=== PATIENT | male | born 1990 | race Caucasian/White ===

== ENCOUNTER 2016-08-21 15:38 | Emergency (ER) | payer OTHER, BC ==
--- NOTE | 2016-08-21 18:02 | US ---
DUPLX SCAN VEIN EXT UNI LT COMPARISON: None. HISTORY: 25-year-old with left hip pain for 3 weeks, with slight swelling. Technique: The veins of the left lower extremity were interrogated with real-time grayscale ultrasound, color Doppler, and spectral Doppler. Vessel compressibility and flow augmentation were assessed. FINDINGS: Deep venous thrombosis: None. Common femoral vein: Normal. Proximal femoral vein: Normal. Saphenous vein junction: Normal. Mid to distal femoral vein: Normal. Popliteal vein: Normal. Peroneal veins: Normal. Posterior tibial veins: Normal. IMPRESSION: 1. Normal study. There is no evidence of deep venous thrombosis of the left lower extremity. The report was sent to the emergency department electronic medical record system, 08/21/2016 at 18:03
--- NOTE | 2016-08-21 18:05 | RAD ---
LOWER LEG LEFT COMPARISON: None HISTORY: Left lower leg pain for 3 weeks after doing a bathroom remodel. No injury. FINDINGS: Views: Left tibia-fibula and lateral. Bones: Normal. Joints: Normal. Soft tissues: Normal. IMPRESSION: 1. Normal study.
== END 2016-08-21 18:23 | disposition home or self-care (01) ==
LOC: ED 15:38
DX: S86.112A Strain of other muscle(s) and tendon(s) of posterior muscle group at lower leg level, left leg, initial encounter (principal); M79.662 Pain in left lower leg; X58.XXXA Exposure to other specified factors, initial encounter; Y92.9 Unspecified place or not applicable